=== PATIENT | male | born 1965 | race Caucasian/White ===

== ENCOUNTER → 2019-02-28 | Outpatient (CLI) | payer OTHER ==
--- NOTE | 2019-03-01 08:58 | KCIC ---
Examination: SKULL 2V History: Screening evaluation for MRI. 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 Comparison/Correlation: None Findings: Frontal and lateral views of skull were obtained. Left-sided craniotomy findings are present with surgical clips and wires. Left parasellar radiopaque densities which appear to represent clips related to aneurysm surgery in this patient with previous surgical history noted. No bony destructive finding. Patient is edentulous. Impression: Left parasellar surgical clips corresponding to reported aneurysm surgical history. Prior left craniotomy. Electronically signed by: Vega Potter MD (03/01/2019 8:55 AM) [id number]
== END | disposition home or self-care (01) ==
LOC: KCIC MRI 12:07
PROVIDERS: ATTEND Orthopaedic Surgery
DX: M75.41 Impingement syndrome of right shoulder (principal); M75.42 Impingement syndrome of left shoulder; Z98.890 Other specified postprocedural states
CPT/HCPCS: 70250

== ENCOUNTER → 2019-04-10 | Outpatient (CLI) | payer OTHER ==
[~2019-04-10] MED LIST: CONTRAST GIVEN. MC PRN; IOHEXOL 180 MG/ML 10 ML VIAL. INT ART ONE; LIDOCAINE 1% Multi-Dose 20 ML VIAL. ID ONE
--- NOTE | 2019-04-10 11:30 | KCIC ---
Examination: CT arthrogram left shoulder HISTORY: History of impingement left shoulder, shoulder pain COMPARISON: None available TECHNIQUE: Axial CT images of the left shoulder performed after arthrogram injection. Coronal and sagittal reformats are performed Exposure: One or more of the following individualized dose reduction techniques were utilized for this examination: 1. Automated exposure control 2. Adjustment of the mA and/or kV according to patient size 3. Use of iterative reconstruction technique FINDINGS: The long head of the biceps tendon is not identified in the bicipital groove. There is full-thickness tear of the junction of the subscapularis and anterior fibers of the supraspinatus tendon with extension of contrast into the subacromial subdeltoid bursa from the shoulder joint. The full-thickness tear measures 1.3 cm in transverse dimension. The attachment of the infraspinatus, teres minor tendon grossly appears intact. The visualized labrum grossly appears unremarkable. The acromion is type II. Inferior aspect of the acromion abuts the superior aspect of the supraspinatus tendon. The muscle bulk grossly appears unremarkable. Mild degenerative changes glenohumeral joint, acromioclavicular joint. IMPRESSION: 1. Full-thickness tear of the junction of the subscapularis and anterior fibers of the supraspinatus tendon with extension of contrast into the subacromial subdeltoid bursa. The inferior aspect of the acromion abuts the superior aspect of the supraspinatus tendon. Correlate for impingement. 2. The long head of the biceps tendon is not identified in the bicipital groove. Full-thickness tear is not excluded. Electronically signed by: Gilberto Vega MD (04/10/2019 11:27 AM) [id number]
--- NOTE | 2019-04-10 11:36 | KCIC ---
Examination: CT arthrogram right shoulder HISTORY: History of right shoulder impingement, pain COMPARISON: None available TECHNIQUE: Axial CT images of the right shoulder performed after arthrogram injection. Coronal and sagittal reformats are performed Exposure: One or more of the following individualized dose reduction techniques were utilized for this examination: 1. Automated exposure control 2. Adjustment of the mA and/or kV according to patient size 3. Use of iterative reconstruction technique FINDINGS: The long head of the biceps tendon is not well-visualized in the bicipital groove. There is full-thickness tear of the junction of the subscapularis and anterior fibers of the supraspinatus tendon with extension of contrast into the subacromial subdeltoid bursa from the shoulder joint. The full-thickness tear measures 1.1 cm in transverse dimension. The attachment of the infraspinatus, teres minor tendon grossly appears intact. The visualized labrum grossly appears unremarkable. The acromion is type II. Inferior aspect of the acromion abuts the superior aspect of the supraspinatus tendon. The muscle bulk grossly appears unremarkable. Mild degenerative changes glenohumeral joint, acromioclavicular joint. IMPRESSION: 1. Full-thickness tear of the junction of the subscapularis and anterior fibers of the supraspinatus tendon with extension of contrast into the subacromial subdeltoid bursa. The inferior aspect of the acromion abuts the superior aspect of the supraspinatus tendon. Correlate for impingement. 2. The long head of the biceps tendon is not well-visualized in the bicipital groove. Electronically signed by: Gilberto Vega MD (04/10/2019 11:33 AM) [id number]
--- NOTE | 2019-04-11 11:37 | KCIC ---
Examination: Bilateral Shoulder Arthrogram: History: Bilateral shoulder pain Comparison: None available Procedure: Risks, benefits and complications including bleeding, infection, blood vessel damage or joint infection were discussed with the patient. Questions were answered and consent form signed. The patient was placed supine on the fluoroscopy table with the shoulder slightly externally rotated. Bony landmarks were used to plan for fluoroscopic injection. The patient was carefully prepped and draped in a sterile fashion. Using fluoroscopic guidance, local anesthetic and a 22 gauge needle the joint space was entered. Intra-articular location was confirmed as approximately 13 cc of a mixture of 15 cc iodinated contrast and 5 cc lidocaine was injected to distend the right and left shoulder joints. The procedure was well tolerated and the patient was sent to CT. Fluoroscopic time on the left is 24 seconds and on the right is 21 seconds. One fluoroscopic image was obtained. Impression: Bilateral shoulder arthrogram injections for CT.. Electronically signed by: Gilberto Vega MD (04/11/2019 11:34 AM) [email or web address]
== END | disposition home or self-care (01) ==
LOC: KCIC 08:06
PROVIDERS: ATTEND Orthopaedic Surgery
DX: M75.41 Impingement syndrome of right shoulder (principal); M75.42 Impingement syndrome of left shoulder; M19.012 Primary osteoarthritis, left shoulder; M75.101 Unspecified rotator cuff tear or rupture of right shoulder, not specified as traumatic; M75.102 Unspecified rotator cuff tear or rupture of left shoulder, not specified as traumatic; M75.81 Other shoulder lesions, right shoulder; M25.512 Pain in left shoulder; M25.511 Pain in right shoulder; M75.82 Other shoulder lesions, left shoulder
CPT/HCPCS: 73040; 73201; Q9965